=== PATIENT | female | born 1985 | race Caucasian/White ===

== ENCOUNTER 2018-11-13 15:30 | Emergency (ER) | payer SELFPAY ==
[~2018-11-13] VITALS: Ht 165.1 cm; Wt 61.4 kg
[~2018-11-13 15:30] MED LIST: ACET500C5 PO; DOCU-144 PO; NITR-58 PO
[2018-11-13 15:35] VITALS: Ht 165.1 cm; Wt 61.4 kg
[2018-11-13] MEDS ORDERED: morphine 4 MG/ML VIAL IV STA (16:12)
[2018-11-13] MEDS ORDERED: SOD CHLORIDE 0.9% 1,000 ML IV STA (16:12)
[2018-11-13] MEDS ORDERED: ONDANSETRON 4 MG INJ IV STA (16:12)
[2018-11-13] MEDS ORDERED: IOHEXOL 300MG/ML 150 ML BTL ONE (16:58)
[2018-11-13] MEDS ORDERED: SOD CHLORIDE 0.9% 100 ML ONE (16:58)
[2018-11-13 18:45] VITALS: BP 118/64; PULSE 68; RESP 16
== END 2018-11-13 19:16 | disposition home or self-care (01) ==
LOC: FTE 15:30
DX: N30.90 Cystitis, unspecified without hematuria (principal); K59.00 Constipation, unspecified; D64.9 Anemia, unspecified
CPT/HCPCS: 36415; 74177; 80053; 81001; 81025; 83690; 85025; 87081; 87086; 96374; 96375; 99285; J2270; J2405; J7030; Q9967